=== PATIENT | female | born 1950 | race Caucasian/White ===

== ENCOUNTER 2024-03-28 12:28 | Outpatient (CLI) | payer MEDICARE ==
[~2024-03-28 12:28] MED LIST: Magnevist 469MG/ML 20 ML VIAL ONE
== END 2024-03-28 12:29 | disposition home or self-care (01) ==
LOC: CSHMRI 12:28
PROVIDERS: ATTEND Psychiatry & Neurology Neurology
DX: R41.3 Other amnesia (principal); R90.82 White matter disease, unspecified; J32.3 Chronic sphenoidal sinusitis
CPT/HCPCS: 70553; 76376